=== PATIENT | female | born 1985 | race Caucasian/White ===

== ENCOUNTER 2019-03-18 13:23 | Emergency (ER) | payer MEDICAID ==
[~2019-03-18] VITALS: Ht 170.2 cm; Wt 59.1 kg
[2019-03-18 13:40] VITALS: Ht 170.2 cm; Wt 59.1 kg
[2019-03-18] MEDS ORDERED: NEURONTIN 300300 MG PO (13:41)
[2019-03-18] MEDS ORDERED: PROPRANOLOL HCL20 MG PO (13:41)
[2019-03-18] MEDS ORDERED: TRILEPTAL300 MG PO (13:41)
[2019-03-18 14:27] LABS: APPEARANCE SL CLDY (CLEAR); COLOR ORANGE (YELLOW)
[2019-03-18 14:30] LABS: BACTERIA FEW /hpf (NEGATIVE); EPITHELIAL CELLS 0-5 /hpf (0-5); RED CELLS - URINE 0-5 /hpf (0-5); WHITE CELLS - URINE >50 /hpf (NEGATIVE)
[2019-03-18] MEDS ORDERED: VOLTAREN75 MG PO (15:03)
[2019-03-18] MEDS ORDERED: MACROBID100 MG PO (15:03)
[2019-03-18 15:25] VITALS: BP 128/72
== END 2019-03-18 15:26 | disposition home or self-care (01) ==
LOC: D.ER 13:23
PROVIDERS: Family Medicine
DX: N39.0 Urinary tract infection, site not specified (principal); F17.200 Nicotine dependence, unspecified, uncomplicated

== ENCOUNTER 2019-10-23 00:32 | Emergency (ER) | payer MEDICAID ==
[~2019-10-23] VITALS: Ht 170.2 cm; Wt 59.1 kg
[~2019-10-23 00:32] MED LIST: MACROBID100 MG PO; NEURONTIN 300300 MG PO; PROPRANOLOL HCL20 MG PO; TRILEPTAL300 MG PO; VOLTAREN75 MG PO
[2019-10-23 00:42] VITALS: Ht 170.2 cm; Wt 59.1 kg
[2019-10-23] MEDS ORDERED: VISTARIL PO (00:44)
[2019-10-23] MEDS ORDERED: TRAZODONE HCL150 MG PO (00:44)
[2019-10-23] MEDS ORDERED: HYDROCODON-ACE1 EAC7 PO (01:07)
[2019-10-23 01:35] VITALS: BP 108/68
== END 2019-10-23 01:35 | disposition home or self-care (01) ==
LOC: D.ER 00:32
DX: S05.01XA Injury of conjunctiva and corneal abrasion without foreign body, right eye, initial encounter (principal); X58.XXXA Exposure to other specified factors, initial encounter; Y93.9 Activity, unspecified; Y92.9 Unspecified place or not applicable